=== PATIENT | male | born 1960 | race Two or more races ===

== ENCOUNTER 2019-01-09 04:43 | Emergency (ER) | payer OTHER ==
[~2019-01-09] VITALS: Ht 170.2 cm; Wt 81.6 kg
[2019-01-09] MEDS ORDERED: KAOPECTATE262 MG/15 PO (04:51)
== END 2019-01-09 11:26 | disposition home or self-care (01) ==
LOC: ER 04:43
DX: K29.70 Gastritis, unspecified, without bleeding (principal)

== ENCOUNTER 2019-03-25 12:19 | Emergency (ER) | payer OTHER ==
[~2019-03-25] VITALS: Ht 175.3 cm; Wt 80.7 kg
[~2019-03-25 12:19] MED LIST: KAOPECTATE262 MG/15 PO
[2019-03-25] MEDS ORDERED: MUCINEX1200 MG PO (16:10)
[2019-03-25] MEDS ORDERED: PROMETH-CODEIN 65 ML PO (16:10)
[2019-03-25] MEDS ORDERED: ZITHROMAX500 MG PO (16:10)
== END 2019-03-25 16:36 | disposition home or self-care (01) ==
LOC: ER 12:19
DX: J45.998 Other asthma (principal)

== ENCOUNTER 2021-12-01 11:55 | Inpatient (IN) | payer OTHER ==
[~2021-12-01] VITALS: Ht 170.2 cm; Wt 86.6 kg
[~2021-12-01 11:55] MED LIST changes: +MUCINEX1200 MG PO; +PROMETH-CODEIN 65 ML PO; +ZITHROMAX500 MG PO
== END 2021-12-02 15:47 | disposition home or self-care (01) | DRG 340 ==
LOC: ER 11:55 → SURG 18:02
PROVIDERS: Surgery; ADMIT Internal Medicine; ATTEND Internal Medicine
PROC: 0WQF4ZZ Repair Abdominal Wall, Percutaneous Endoscopic Approach (ICD-10-PCS; 2021-12-01)
PROC: 0DTJ4ZZ Resection of Appendix, Percutaneous Endoscopic Approach (ICD-10-PCS; principal; 2021-12-01 23:15)
DX: K35.32 Acute appendicitis with perforation, localized peritonitis, and gangrene, without abscess (principal); K43.9 Ventral hernia without obstruction or gangrene; Z20.822 Contact with and (suspected) exposure to COVID-19

== ENCOUNTER 2022-06-17 17:35 | Emergency (ER) | payer OTHER ==
[~2022-06-17] VITALS: Ht 167.6 cm; Wt 93.0 kg
== END 2022-06-17 18:15 | disposition home or self-care (01) ==
LOC: ER 17:35
DX: L03.012 Cellulitis of left finger (principal)